=== PATIENT | female | born 1980 | race Caucasian/White ===

== ENCOUNTER 2019-12-23 23:22 | Emergency (ER) | payer OTHER ==
[2019-12-23 23:43] VITALS: BMI 30.7
--- NOTE | 2019-12-23 23:43 | PDOC ---
*Physical Exam - Vital Signs Last Vital Signs Temp Pulse Resp BP Pulse Ox 97.6 F 100 H 18 120/63 98 12/23/19 23:29 12/23/19 23:29 12/23/19 23:29 12/23/19 23:29 12/23/19 23:29 Medical Decision Making - Medical Decision Making 12/23/19 23:43 Patient seen by the advanced practice provider under my supervision. Ancillary testing reviewed as necessary. I agree with plan as outlined by the advanced practice provider. Discharge - Discharge Information Problems reviewed: Yes Clinical Impression/Diagnosis: Nausea and vomiting Qualifiers: Vomiting type: unspecified Vomiting Intractability: unspecified Qualified Code(s): R11.2 - Nausea with vomiting, unspecified Migraine Qualifiers: Migraine type: other Status migrainosus presence: without status migrainosus Intractability: not intractable Qualified Code(s): G43.809 - Other migraine, not intractable, without status migrainosus Condition: Fair Disposition: HOME - Follow up/Referral Referrals: Camilla Rogel MD [Primary Care Provider] - - Patient Discharge Instructions Patient Printed Discharge Instructions: Gastroenteritis Diet Additional Instructions: Drink plenty of fluids start a BRAT ( bananas, rice apples toast) follow up with your doctor return to the ER if symptoms worsen - Post Discharge Activity Work/Back to School Note: Back to Work
[2019-12-23] MEDS ORDERED: SODIUM CHLORIDE 1,000 ML IV STA (23:46)
[2019-12-23] MEDS ORDERED: METOCLOPRAMIDE HCL INJECTION 10 MG/2 ML VIAL IVPB ONE (23:46)
--- NOTE | 2019-12-23 23:46 | PDOC ---
History of Present Illness - General Chief Complaint: Nausea Stated Complaint: NAUSEA Time Seen by Provider: 12/23/19 23:37 History Source: Patient - History of Present Illness Initial Comments: 12/24/19 00:29 39-year-old female complaining of nausea and vomiting. Patient reports that she has been exercising yesterday and then had Polish food after for dinner. Since then she has been nausea with vomiting patient also has a history of migraine reports headache similar to her migraine now. Denies weakness, chest pain, abdominal pain, diarrhea. Past History - Medical History Allergies/Adverse Reactions: Allergies Allergy/AdvReac Type Severity Reaction Status Date / Time No Known Allergies Allergy Verified 12/23/19 23:33 Home Medications: Ambulatory Orders NK [No Known Home Medication] 12/23/19 - Reproductive History Is Patient Now?: No - Psycho-Social/Smoking History Smoking History: Never smoked Have you smoked in the past 12 months: No Information on smoking cessation initiated: No - Substance Abuse Hx (Audit-C & DAST Scrn) How often the patient has a drink containing alcohol: Never Score: In Men: 4 or > Positive; In Women: 3 or > Positive: 0 Screen Result (Pos requires Nsg. Audit-10AR): Negative In the last yr the pt used illegal drug/Rx for NonMed reason: No Score: Yes response is considered Positive: 0 Screen Result (Positive result requires Nsg. DAST-10): Negative Review of Systems - Review of Systems Able to Perform ROS?: Yes Is the patient limited Haitian proficient: No Constitutional: No: Symptoms Reported, See HPI, Chills, Diaphoresis, Fever, Loss of Appetite, Malaise, Night Sweats, Weakness, Weight Stable, Unintentional Wgt. Loss, Unexplained wgt Loss, Other Cardiac (ROS): No: Symptoms Reported, See HPI, Chest Pain, Edema, Irregular Heart Rate, Lightheadedness, Palpitations, Syncope, Chest Tightness, Other ABD/GI: Yes: Nausea. No: Symptoms Reported, See HPI, Abdominal Distended, Abd. Pain w/ defecation, Blood Streaked Bowels, Constipated, Diarrhea, Difficulty Swallowing, Poor Appetite, Poor Fluid Intake, Rectal Bleeding, Vomiting, Indigestion, Abdominal cramping, Tarry Stools, Other *Physical Exam - Vital Signs Last Vital Signs Temp Pulse Resp BP Pulse Ox 97.6 F 100 H 18 120/63 98 12/23/19 23:29 12/23/19 23:29 12/23/19 23:29 12/23/19 23:29 12/23/19 23:29 - Physical Exam General Appearance: Yes: Appropriately Dressed Respiratory/Chest: positive: Lungs Clear, Normal Breath Sounds. negative: Chest Tender, Respiratory Distress, Accessory Muscle Use, Labored Respiration, Rapid RR, Decreased Breath Sounds, Paradoxal Breathing, Crackles, Rales, Rhonchi, Stridor, Wheezing, Hyperresonant, Dullness, Plerual Rub, Other Cardiovascular: positive: Regular Rhythm, Regular Rate Gastrointestinal/Abdominal: positive: Normal Bowel Sounds, Soft. negative: Tender Musculoskeletal: positive: Normal Inspection Extremity: positive: Normal Capillary Refill, Normal Inspection, Normal Range of Motion Integumentary: positive: Normal Color, Dry, Warm Neurologic: positive: Fully Oriented, Alert ED Progress Note - Progress Note Progress Note: 12/24/19 * Nausea and vomiting; P: IVF Reglan karenl Medical Decision Making - Medical Decision Making 12/24/19 01:23 Patient reports feeling better. Patient is currently p.o. challenging. Discharge - Discharge Information Problems reviewed: Yes Clinical Impression/Diagnosis: Nausea and vomiting Qualifiers: Vomiting type: unspecified Vomiting Intractability: unspecified Qualified Code(s): R11.2 - Nausea with vomiting, unspecified Migraine Qualifiers: Migraine type: other Status migrainosus presence: without status migrainosus Intractability: not intractable Qualified Code(s): G43.809 - Other migraine, not intractable, without status migrainosus Condition: Fair Disposition: HOME - Follow up/Referral Referrals: Camilla Rogel MD [Primary Care Provider] - - Patient Discharge Instructions Patient Printed Discharge Instructions: Gastroenteritis Diet Additional Instructions: Drink plenty of fluids start a BRAT ( bananas, rice apples toast) follow up with your doctor return to the ER if symptoms worsen - Post Discharge Activity Work/Back to School Note: Back to Work
[2019-12-24] MEDS ORDERED: METOCLOPRAMIDE HCL INJECTION 10 MG/2 ML VIAL ONE (00:06)
[2019-12-24 01:41] LABS: EPI CELLS 12 /uL (0-25.1); HYALINE CASTS 1 /uL (0-3.1); URINE APPEARANCE CLEAR; URINE BACTERIA 370 /uL (0-1359); URINE BILIRUBIN NEGATIVE (NEGATIVE); URINE COLOR YELLOW; URINE GLUCOSE (UA) NEGATIVE (NEGATIVE); URINE KETONE 4+ (NEGATIVE); URINE LEUK ESTERASE NEGATIVE (NEGATIVE); URINE NITRITE NEGATIVE (NEGATIVE); URINE PROTEIN TRACE (NEGATIVE); URINE RBC 79 /uL (0-23.9); URINE WBC 12 /uL (0-25.8)
[2019-12-24 01:42] LABS: HCG,QUALITATIVE URINE Negative
[2019-12-24 02:10] VITALS: BP 113/74; PULSE 92; TEMP 98
== END 2019-12-24 02:09 | disposition home or self-care (01) ==
LOC: JER 23:22
PROC: 3E033GC Introduction of Other Therapeutic Substance into Peripheral Vein, Percutaneous Approach (ICD-10-PCS; principal; 2019-12-23)
PROC: 3E0337Z Introduction of Electrolytic and Water Balance Substance into Peripheral Vein, Percutaneous Approach (ICD-10-PCS; 2019-12-23)
DX: R11.2 Nausea with vomiting, unspecified (principal); G43.809 Other migraine, not intractable, without status migrainosus
CPT/HCPCS: 81003; 84703; 99284-25

== ENCOUNTER 2022-08-04 23:34 | Emergency (ER) | payer OTHER ==
[2022-08-04 23:40] VITALS: BP 146/91; PULSE 126; RESP 18; TEMP 97.9; BMI 34.4
[2022-08-05] MEDS ORDERED: ALBUTEROL SO4 2.5/IPRATROPIUM 0.5 INH SOL 3 ML VIAL.NEB. NEB ONE ×2 (00:41→00:45)
[2022-08-05] MEDS ORDERED: BENZONATATE 200 MG CAPSULE PO ONE (00:49)
[2022-08-05] MEDS ORDERED: BENZONATATE 100 MG CAPSULE PO ONE (01:00)
[2022-08-05] MEDS ORDERED: LORazepam 2 MG TABLET PO ONE (02:02)
[2022-08-05] MEDS ORDERED: SODIUM CHLORIDE 0.9% 500 ML INFUS.BAG IV ONE (02:02)
[2022-08-05] MEDS ORDERED: LORazepam 1 MG TABLET ONE (02:17)
[2022-08-05 02:20] LABS: BASO % 1.1 % (0-2.0); EOS % 1.2 % (0-4.5); HEMATOCRIT 41.8 % (32.4-45.2); HEMOGLOBIN 14.5 GM/dL (10.7-15.3); LYMPH % 25.7 % (8-40); MCH 31.6 pg (25.7-33.7); MCHC 34.7 g/dl (32.0-36.0); MEAN CELL VOLUME 90.9 fl (80-96); MEAN PLT VOLUME 7.7 fl (7.5-11.1); MONO % 8.6 % (3.8-10.2); NEUT % 63.4 % (42.8-82.8); PLATELET COUNT 400 10^3/uL (134-434); RDW 12.6 % (11.6-15.6); WHITE BLOOD COUNT 11.1 K/mm3 (4.0-10.0)
[2022-08-05 02:40] LABS: CALCIUM 9.8 mg/dL (8.5-10.1)
[2022-08-05 02:41] LABS: ALBUMIN 3.8 g/dl (3.4-5.0); BLOOD UREA NITROGEN 12.6 mg/dL (7-18)
[2022-08-05 02:46] LABS: BILIRUBIN,TOTAL 0.3 mg/dL (0.2-1); TOT PROT 8.1 g/dl (6.4-8.2)
[2022-08-05 03:21] LABS: MAGNESIUM 2.2 mg/dL (1.8-2.4)
== END 2022-08-05 03:49 | disposition home or self-care (01) ==
LOC: JER 23:34
PROC: 3E0F7GC Introduction of Other Therapeutic Substance into Respiratory Tract, Via Natural or Artificial Opening (ICD-10-PCS; principal; 2022-08-04)
DX: R05.1 Acute cough (principal); R06.02 Shortness of breath; Z20.822 Contact with and (suspected) exposure to COVID-19
CPT/HCPCS: 0241U-QW; 36415; 71275-TC; 80053; 83735; 84443; 84703; 85025; 85379; 93005; 93010; 99285-25; Q9967

== ENCOUNTER 2022-09-24 23:08 | Emergency (ER) | payer OTHER ==
[2022-09-24 23:12] VITALS: BP 139/84; TEMP 97.6; BMI 35.5
[2022-09-24] MEDS ORDERED: KETOROLAC TROMETHAMINE 15 MG/ML VIAL IVPUSH ONE (23:32)
[2022-09-24] MEDS ORDERED: SODIUM CHLORIDE 0.9% 500 ML INFUS.BAG IV ONE (23:32)
[2022-09-24] MEDS ORDERED: METOCLOPRAMIDE HCL INJECTION 10 MG/2 ML VIAL IVPUSH ONE (23:33)
[2022-09-24] MEDS ORDERED: METOCLOPRAMIDE HCL INJECTION 10 MG/2 ML VIAL ONE (23:45)
[2022-09-24] MEDS ORDERED: KETOROLAC TROMETHAMINE 15 MG/ML VIAL ONE (23:46)
[2022-09-25 00:09] VITALS: PULSE 88; RESP 20
== END 2022-09-25 01:27 | disposition home or self-care (01) ==
LOC: JER 23:08
PROC: 3E0333Z Introduction of Anti-inflammatory into Peripheral Vein, Percutaneous Approach (ICD-10-PCS; principal; 2022-09-24)
PROC: 3E033GC Introduction of Other Therapeutic Substance into Peripheral Vein, Percutaneous Approach (ICD-10-PCS; 2022-09-24)
DX: R11.0 Nausea (principal); R51.9 Headache, unspecified
CPT/HCPCS: 93005; 93010; 99284-25

== ENCOUNTER 2022-10-24 18:14 | Emergency (ER) | payer OTHER ==
[2022-10-24 18:23] VITALS: BP 147/91; PULSE 82; RESP 18; TEMP 98; BMI 35.5
[2022-10-24] MEDS ORDERED: ACETAMINOPHEN 1000 MG/100 ML BAG IVPB ONE (18:45)
[2022-10-24] MEDS ORDERED: ONDANSETRON 4 MG/2 ML VIAL IVPUSH ONE (18:45)
[2022-10-24] MEDS ORDERED: SODIUM CHLORIDE 0.9% 500 ML INFUS.BAG IV ONE (18:45)
[2022-10-24] MEDS ORDERED: ONDANSETRON 4 MG/2 ML VIAL ONE (18:51)
[2022-10-24] MEDS ORDERED: ACETAMINOPHEN INJECTION 100 ML IVPB ONE (18:51)
[2022-10-24 19:10] LABS: EOS % 0.1 % (0-4.5); HEMATOCRIT 44.3 % (32.4-45.2); HEMOGLOBIN 15.2 GM/dL (10.7-15.3); MCH 31.2 pg (25.7-33.7); MCHC 34.3 g/dl (32.0-36.0); MEAN PLT VOLUME 8.2 fl (7.5-11.1); MONO % 7.7 % (3.8-10.2); NEUT % 74.2 % (42.8-82.8); PLATELET COUNT 413 10^3/uL (134-434); RBC 4.87 M/mm3 (3.60-5.2); RDW 12.3 % (11.6-15.6); WHITE BLOOD COUNT 9.7 K/mm3 (4.0-10.0)
[2022-10-24 19:24] LABS: POTASSIUM 4.3 mmol/L (3.5-5.1)
[2022-10-24 19:27] LABS: CALCIUM 9.7 mg/dL (8.5-10.1)
[2022-10-24 19:28] LABS: ALBUMIN 4.1 g/dl (3.4-5.0); BLOOD UREA NITROGEN 7.4 mg/dL (7-18)
[2022-10-24 19:31] LABS: CREATININE 0.8 mg/dL (0.55-1.3)
[2022-10-24 19:32] LABS: BILIRUBIN,TOTAL 0.6 mg/dL (0.2-1); TOT PROT 8.3 g/dl (6.4-8.2)
[2022-10-24 20:02] LABS: ERYTHROCYTE SEDIMENTATION RATE 16 mm/hr (0-20)
[2022-10-24 20:29] LABS: PH,URINE 6.5 (5.0-8.0); URINE APPEARANCE CLEAR; URINE BILIRUBIN NEGATIVE (NEGATIVE); URINE COLOR YELLOW; URINE GLUCOSE (UA) NEGATIVE (NEGATIVE); URINE KETONE 2+ (NEGATIVE); URINE LEUK ESTERASE NEGATIVE (NEGATIVE); URINE NITRITE NEGATIVE (NEGATIVE); URINE PROTEIN NEGATIVE (NEGATIVE)
== END 2022-10-24 22:08 | disposition home or self-care (01) ==
LOC: JER 18:14
PROC: 3E033NZ Introduction of Analgesics, Hypnotics, Sedatives into Peripheral Vein, Percutaneous Approach (ICD-10-PCS; principal; 2022-10-24)
PROC: 3E033GC Introduction of Other Therapeutic Substance into Peripheral Vein, Percutaneous Approach (ICD-10-PCS; 2022-10-24)
DX: R10.31 Right lower quadrant pain (principal)
CPT/HCPCS: 36415; 76830-TC; 80053; 81003; 84703; 85025; 85651; 86140; 86850; 86900; 86901; 87086; 99284-25

== ENCOUNTER 2024-03-07 07:45 | Emergency (ER) | payer OTHER ==
[2024-03-07 07:57] VITALS: BP 142/82; PULSE 89; RESP 16; TEMP 98.2; BMI 32.3
[2024-03-07] MEDS ORDERED: METOCLOPRAMIDE HCL INJECTION 10 MG/2 ML VIAL ONE (08:22)
[2024-03-07] MEDS ORDERED: KETOROLAC TROMETHAMINE 15 MG/ML VIAL ONE (08:22)
[2024-03-07] MEDS: KETOROLAC TROMETHAMINE 15 MG/ML VIAL IVPUSH ONE (08:46)
[2024-03-07] MEDS: METOCLOPRAMIDE HCL INJECTION 10 MG/2 ML VIAL IVPUSH ONE (08:46)
== END 2024-03-07 09:43 | disposition home or self-care (01) ==
LOC: JER 07:45
PROC: 3E0333Z Introduction of Anti-inflammatory into Peripheral Vein, Percutaneous Approach (ICD-10-PCS; principal; 2024-03-07)
PROC: 3E033GC Introduction of Other Therapeutic Substance into Peripheral Vein, Percutaneous Approach (ICD-10-PCS; 2024-03-07)
DX: G43.909 Migraine, unspecified, not intractable, without status migrainosus (principal); H53.149 Visual discomfort, unspecified; R11.0 Nausea
CPT/HCPCS: 99284-25

== ENCOUNTER 2024-04-01 00:37 | Emergency (ER) | payer OTHER ==
[2024-04-01 00:45] VITALS: BP 159/89; PULSE 98; RESP 18; TEMP 98.7; BMI 32.3
[2024-04-01] MEDS ORDERED: ALBUTEROL SO4 2.5/IPRATROPIUM 0.5 INH SOL 3 ML VIAL.NEB. NEB ONE (01:27)
[2024-04-01] MEDS ORDERED: LORazepam 1 MG TABLET ONE (01:27)
[2024-04-01] MEDS: ALBUTEROL SO4 2.5/IPRATROPIUM 0.5 INH SOL 3 ML VIAL.NEB. NEB ONE (01:32)
[2024-04-01] MEDS: LORazepam 1 MG TABLET PO ONE (01:33)
== END 2024-04-01 02:03 | disposition home or self-care (01) ==
LOC: JER 00:37
PROC: 3E0F7GC Introduction of Other Therapeutic Substance into Respiratory Tract, Via Natural or Artificial Opening (ICD-10-PCS; principal; 2024-04-01)
DX: J38.5 Laryngeal spasm (principal); R06.02 Shortness of breath
CPT/HCPCS: 94640; 99283-25